=== PATIENT | male | born 1950 | race Caucasian/White ===

== ENCOUNTER 2017-02-17 14:50 | Outpatient (CLI) | payer MEDICARE, MEDICAID ==
--- NOTE | 2017-02-17 15:36 | RAD ---
3 VIEWS RIGHT SHOULDER: Date: 02/17/17 COMPARISON: None. HISTORY: Right shoulder pain. FINDINGS: Three views of the right shoulder show no evidence of acute fracture or dislocation. No degenerative changes are seen. No soft tissue swelling is seen. IMPRESSION: Unremarkable exam. POS: [facility]
== END 2017-02-17 14:51 | disposition home or self-care (01) ==
LOC: MADRAD 14:50
PROVIDERS: ATTEND Obstetrics & Gynecology
DX: M25.511 Pain in right shoulder (principal)

== ENCOUNTER 2017-07-25 13:15 | Outpatient (CLI) | payer MEDICARE, MEDICAID ==
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
== END 2017-07-25 13:16 | disposition home or self-care (01) ==
LOC: MADRAD 13:15
PROVIDERS: ATTEND Obstetrics & Gynecology
DX: M25.561 Pain in right knee (principal)

== ENCOUNTER 2020-06-17 11:08 | Emergency (ER) | payer MEDICARE, MEDICAID ==
[2020-06-17 12:06] LABS: #Basophils 0.1 thou/uL (0.0-0.2); #Eosinphils 0.1 thou/uL (0.0-0.7); #Lymphocytes 1.2 thou/uL (1.20-3.40); #Monocytes 0.7 thou/uL (0.11-0.59); #Neutrophils 7.9 thou/uL (1.40-6.50); %Basophils 0.7 % (0.0-1.0); %Eosinophils 1.2 % (0.0-10.0); %Lymphocytes 12.1 % (21.0-51.0); %Monocytes 7.3 % (0.0-10.0); %Neutrophils 78.7 % (42.0-75.0); Hemoglobin 13.7 g/dL (14.0-18.0); Mean Corpuscular HGB CONC 31.7 g/dL (32.0-36.0); Mean Corpuscular Hemoglobin 28.5 pg (27.0-31.0); Mean Corpuscular Volume 89.9 fL (78.0-98.0); Platelet Count 180 thou/uL (130-400); RBC Distribution Width 13.8 % (11.5-14.5); Red Blood Cell (RBC) Count 4.81 mill/uL (4.70-6.10)
[2020-06-17 12:24] LABS: ALT (SGPT) 8 U/L (8-55); AST (SGOT) 13 U/L (5-34); Albumin 3.8 g/dL (3.4-4.8); Alkaline Phosphatase 49 U/L (40-110); Anion Gap 16 mmol/L (10-20); BUN (Urea Nitrogen) 19 mg/dL (8.4-25.7); Bilirubin, Total 0.5 mg/dL (0.2-1.2); Calc. Creatinine Clearance 0 mL/min (70-130); Calcium 8.6 mg/dL (7.8-10.44); Carbon Dioxide 31 mmol/L (23-31); Chloride 98 mmol/L (98-107); Globulin 2.5 g/dL (2.4-3.5); Glucose 123 mg/dL (80-115); Potassium 3.2 mmol/L (3.5-5.1); Protein, Total 6.3 g/dL (5.8-8.1); Sodium 142 mmol/L (136-145)
[2020-06-17 12:27] LABS: INR-International Normal Ratio 0.9; PTT 24.2 sec (22.9-36.1); Prothrombin Time 12.2 sec (12.0-14.7)
[2020-06-17] MEDS ORDERED: Pantoprazole 40 MG VIAL ONE ×2 (13:16→13:21)
== END 2020-06-17 14:04 | disposition short-term general hospital (02) ==
LOC: MADERS 11:08
DX: K92.2 Gastrointestinal hemorrhage, unspecified (principal); I12.9 Hypertensive chronic kidney disease with stage 1 through stage 4 chronic kidney disease, or unspecified chronic kidney disease; N18.9 Chronic kidney disease, unspecified; Z99.2 Dependence on renal dialysis; Z86.73 Personal history of transient ischemic attack (TIA), and cerebral infarction without residual deficits
CPT/HCPCS: 80053; 85025; 85610; 85730; 86850; 86900; 86901; 93005; 96374; C9113